=== PATIENT | male | born 1950 | race Caucasian/White ===

== ENCOUNTER → 2024-01-15 16:04 | Outpatient (BNVA) | payer MEDICARE, SELFPAY | PROVIDERS: PCP Nurse Practitioner; Visit Provider Nurse Practitioner | DX: E11.22 Type 2 diabetes mellitus with diabetic chronic kidney disease (principal); N18.30 Chronic kidney disease, stage 3 unspecified; E11.65 Type 2 diabetes mellitus with hyperglycemia; Z79.4 Long term (current) use of insulin; I48.91 Unspecified atrial fibrillation | CPT/HCPCS: 80069 ==

== ENCOUNTER → 2024-07-01 15:45 | Outpatient (BNVA) | payer MEDICARE, SELFPAY | PROVIDERS: PCP Nurse Practitioner; Visit Provider Nurse Practitioner | DX: E55.9 Vitamin D deficiency, unspecified (principal); E11.9 Type 2 diabetes mellitus without complications; Z79.4 Long term (current) use of insulin | CPT/HCPCS: 80053; 80061; 82306; 83036; 84443 ==

== ENCOUNTER 2024-10-13 19:10 | Emergency (ER) | payer MEDICARE, SELFPAY ==
[2024-10-13] VITALS (12 sets, daily range): BP systolic 116–128; BP diastolic 57–77; PULSE 75–80; RESP 18–28; TEMP 36.8; O2SAT 87–92
[2024-10-13 20:44] LABS: Basophils % 0.2 %; Eosinophils # 0.1 10^3/uL (0.0-0.8); Eosinophils % 1.4 %; Hematocrit 33.7 % (37-53); Lymphocytes # 0.3 10^3/uL (0.8-4.8); Lymphocytes % 3.2 %; Mean Corpuscular HGB Conc 31.2 g/dL (30-55); Mean Corpuscular Hemoglobin 25.9 pg (27-33); Mean Platelet Volume 10.3 fL (7.4-10.4); Monocytes # 0.4 10^3/uL (0.2-0.9); Monocytes % 4.2 %; Neutrophils # 7.56 10^3/uL (1.8-7.7); Neutrophils % 90.6 %; Nucleated Red Blood Cells % 0 %; Platelet Count 178 10^3/cmm (157-399); Red Blood Count 4.06 10^6/uL (3.85-5.65); White Blood Count 8.35 10^3/uL (3.29-11.43)
[2024-10-13 20:54] LABS: INR 1.46 (0.8-1.2)
[2024-10-13 20:58] LABS: Alanine Aminotransferase 31 U/L (0-41); Albumin Level 2.7 g/dL (3.5-5.2); Alkaline Phosphatase 148 U/L (40-130); Anion Gap 15.6 (5-19); Aspartate Amino Transferase 27 U/L (0-40); Blood Urea Nitrogen 53 mg/dL (8-23); Calcium 8.4 mg/dL (8.5-10.5); Carbon Dioxide 26 mmol/L (22-29); Chloride 91 mmol/L (98-107); Globulin 4.1 g/dL (1.3-4.6); Glucose 316 mg/dL (65-115); Osmolality Calculated 294 mOsm/kg (285-295); Potassium 3.6 mmol/L (3.5-5.1); Sodium 129 mmol/L (136-145); Total Bilirubin 0.5 mg/dL (0.15-1.2); Total Protein 6.8 g/dL (6.6-8.7)
--- NOTE | 2024-10-13 21:35 | XRR_ITS ---
PROCEDURE INFORMATION: Exam: XR Chest Exam date and time: 10/13/2024 9:36 PM Age: 74 years old Clinical indication: Other: Weakness; Prior surgery; Surgery date: 6+ months; Surgery type: Pacer TECHNIQUE: Imaging protocol: Radiologic exam of the chest. Views: 1 view. COMPARISON: CR XR abdomen 1V* [id number] 07/12/2023 11:24 AM FINDINGS: Limitations: Patient rotation. Tubes, catheters and devices: Left chest wall implantable pacer. Lungs: Patchy bibasilar opacities likely atelectasis. No definitive consolidation. Pleural spaces: No pleural effusion or pneumothorax. Heart/Mediastinum: Heart size is poorly evaluated. Bones/joints: No acute osseous abnormalities are seen. XR/XR chest 1V portable [id number] IMPRESSION: Patchy bibasilar opacities likely atelectasis.
[2024-10-13 21:52] LABS: C Reactive Protein 290.1 mg/L (0.0-4.9); Lactic Sepsis W/Reflex 1.5 mmol/L (0.5-2.2)
[2024-10-13 21:58] LABS: Bilirubin Urine Negative (Negative); Blood Urine 3+ (Negative); Glucose Urine UA 1+ (Normal); Ketones Urine Negative (Negative); Leukocyte Esterase Urine 2+ (Negative); Nitrate Urine Negative (Negative); Protein Urine 3+ (Negative); Specific Gravity, Urine 1.017 (1.005-1.030); Urine Appearance Turbid (CLEAR); Urobilinogen Urine 0.2 mg/dL (Negative)
--- NOTE | 2024-10-13 21:58 | W.ED.WEAKNES ---
HPI - Weakness General: Chief complaint: Weakness Stated complaint: possible uti Time Seen by Provider: 10/13/24 21:30 History of Present Illness: 74-year-old man with history of chronic kidney disease, Diabetes, atrial fibrillation on chronic Eliquis anticoagulation, coronary artery disease who presents emergency room with generalized weakness and leg pain. Swelling in his right knee. Pain in his calves bilaterally. He is on Eliquis. He was recently admitted to [facility] in [place] for urinary retention. He had a difficult to place Iqbal and ended up having to go to the OR for this. But been home for about 2 days now. My says he just continually got weaker. Also today she was concerned because he had less urine output and with the worsening swelling in his legs. No altered mental status. No fevers. He says he has had some cough. No abdominal pain. Review of Systems Narrative: Constitutional symptoms: Negative except as documented in HPI. Skin symptoms: Negative except as documented in HPI. Eye symptoms: Negative except as documented in HPI. ENMT symptoms: Negative except as documented in HPI. Respiratory symptoms: Negative except as documented in HPI. Cardiovascular symptoms: Negative except as documented in HPI. Gastrointestinal symptoms: Negative except as documented in HPI. Genitourinary symptoms: Negative except as documented in HPI. Musculoskeletal symptoms: Negative except as documented in HPI. Neurologic symptoms: Negative except as documented in HPI. Psychiatric symptoms: Negative except as documented in HPI. Endocrine symptoms: Negative except as documented in HPI. PFSH ED PFSH: Medical History BPH with obstruction/lower urinary tract symptoms Atrial fibrillation Constipation, slow transit CKD stage 3 due to type 2 diabetes mellitus History of [place] (myocardial infarction) Diabetes mellitus with hyperglycemia, with long-term current use of insulin Surgical History History of heart artery stent 2014 [facility] History of pacemaker August 2023 [facility] Family History Other Cancer Chronic kidney disease (CKD) Diabetes Diabetes mellitus, type 2 Heart disease Social History Smoking and tobacco/nicotine status: never used tobacco/nicotine Alcohol intake: never Substance/Drug Use: never Adopted: No Caregiver/support person: Yes () Lives independently: Yes Household members: spouse Housing: House Marital status: Number of children: 2 service: No Current occupational status: retired Do you think of yourself as: Straight/Heterosexual Current gender identity: Male Physical Exam Narrative: EXAM NARRATIVE: General: Alert, no acute distress. Skin: Warm, dry. 23+ pitting tibial edema. Bilateral lower medial posterior calves he has some cellulitic appearing areas. Head: Normocephalic, atraumatic. Neck: Supple, trachea midline. Eye: Extraocular movements are intact. Ears, nose, mouth and throat: mucosa moist. Cardiovascular: Regular, Normal peripheral perfusion. Respiratory: Lungs are clear to auscultation, respirations are non-labored, breath sounds are equal, Symmetrical chest wall expansion. Gastrointestinal: Soft, Nontender, Non distended Musculoskeletal: Normal ROM, no deformity. Patient has a large prepatellar effusion with no redness. Do not suspect septic joint. Neurological: Alert and oriented, No focal neurological deficit observed. Psychiatric: Cooperative, appropriate mood & affect. Course Vital Signs: Vital signs: Vital Signs Temperature 98.2 F 10/13/24 19:15 Pulse Rate 75 10/14/24 01:30 Respiratory Rate 16 10/14/24 01:30 Blood Pressure 117/59 10/14/24 01:30 Pulse Oximetry 92 10/14/24 01:30 Oxygen Delivery Me thod Room Air 10/13/24 19:15 MDM - Weakness Medical Decision Making Medical decision making: Differential diagnosis for patient presenting with generalized weakness including but not limited to and based on the above HPI, review of systems and physical exam: Sepsis. Dehydration. Renal failure. Electrolyte abnormalities. Anemia. Congestive heart failure. Hypotension. Coronary syndrome. Hepatitis. Cirrhosis. Infections such as pneumonia, urinary tract infection, Tick bourne illness, Cellulitis, Viral infections including influenza and Covid-19. Workup: labwork and lab/exam driven imaging ordered to evaluate, rule in and rule out above pathologies. Lab Review: Laboratory results were reviewed and interpreted by myself the emergency room physician. No leukocytosis. No anemia. Renal function appears near baseline with a BUN/creatinine of 53 and 3.1. Sodium is a little low at 129 but his sugar is high at 316 Chest x-ray: Likely atelectasis. This was reviewed and interpreted by myself the emergency room physician. I also reviewed the radiology report. CT of the chest without contrast: Small bilateral pleural effusions with atelectasis. Sclerotic foci throughout the ribs and spine concerning for osseous metastatic disease. I discussed this with the and the patient and they will follow-up with her primary and with oncology. This was reviewed and interpreted by myself the emergency room physician. I also reviewed the radiology report. I reviewed the patient's medical record. Reexamination: Patient when awake does not require oxygen. He is gotten altered mental status. No focal motor deficits. Just generalized weakness and edema. He is on antibiotics after Iqbal placement at home. says patient has he has been at [facility] with his mind. She does not want to pursue that path. They should have a hospital bed at home soon. She is going to discuss home health options with her primary care provider. Consultation: I spoke with Dr. Carmichael several times about the patient. He does not feel the patient warrants admission. He feels like if they need oxygen that can be done in the emergency room. Discussed with the patient and the family and they say they do not think he needs oxygen at home and they are just going to take him home. Consultation: I spoke with the hospitalist service at [facility]. Renal function actually is a little bit better which might indicate that he needs some diuresis. I giving some IV Lasix here. If he worsens they will return to the hospital and we will transfer. Or admit here. So discussed the findings on the CT scan that suggest small sclerotic foci throughout the ribs and spine that are concerning for metastatic disease. was unaware of this. Assessment and plan: Weakness Edema Chronic kidney disease Hyperglycemia Possible bony metastatic disease ?IV insulin and IV Lasix in the emergency room. - Discharged home - Discussed plan with patient. Answered any questions. - Evaluation and treatment of this problem were appropriate in the emergency setting. Lab Data 10/13/24 20:38 10/13/24 20:38 Radiology Impressions Chest X-Ray 10/13/24 21:35 IMPRESSION: Patchy bibasilar opacities likely atelectasis. Chest CT 10/14/24 00:24 IMPRESSION: 1. Small bilateral pleural effusions with adjacent atelectasis 2. Innumerable small sclerotic foci throughout the ribs and spine concerning for osseous metastatic disease. 3. Other nonemergent findings above. Laboratory Results WBC 8.35 10^3/uL (3.29-11.43) 10/13/24: RBC 4.06 10^6/uL (3.85-5.65) 10/13/24 20:38 Hgb 10.50 g/dL (11.27-16.99) L 10/13/24 20: Hct 33.7 % (37-53) L 10/13/24: MCV 83.0 fl (82-101) 10/13/24: MCH 25.9 pg (27-33) L 10/13/24: MCHC 31.2 g/dL (30-55) 10/13/24: RDW 17.0 % (12.1-15.1) H 10/13/24: Plt Count 178 10^3/cmm (157-399) 10/13/24: MPV 10.3 fL (7.4-10.4) 10/13/24: Neut % (Auto) 90.6 % 10/13/24: Lymph % (Auto) 3.2 % 10/13/24: [place] % (Auto) 4.2 % 10/13/24: Eos % (Auto) 1.4 % 10/13/24: Baso % (Auto) 0.2 % 10/13/24: Neut # (Auto) 7.56 10^3/uL (1.8-7.7) 10/13/24: Lymph # (Auto) 0.3 10^3/uL (0.8-4.8) L 10/13/24:38 [place] # (Auto) 0.4 10^3/uL (0.2-0.9) 10/13/24: Eos # (Auto) 0.1 10^3/uL (0.0-0.8) 10/13/24: Baso # (Auto) 0.0 10^3/uL (0.0-0.1) 10/13/24: Nucleated RBC % (auto) 0 % 02/11/25 20:38 Nucleated RBCs # 0.0 /100WBC 10/13/24 20:38 PT 18.70 SECONDS (12.1-14.9) H 10/13/24 20:38 INR 1.46 (0.8-1.2) H 10/13/24 20:38 Specimen Type Arterial 10/14/24 00:02 Sample Site Radial, right 10/14/24 00:02 ABG pH 7.51 (7.35-7.45) H 10/14/24 00:02 ABG pCO2 37.5 mmHg (35-45) 10/14/24 00:02 ABG pO2 56.3 mmHg (80.0-100.0) L 10/14/24 00:02 ABG HCO3 30.1 mmol/L (22-26) H 10/14/24 00:02 ABG O2 Saturation 89.4 10/14/24 00:02 ABG Base Excess 6.7 mmol/L (-2.0-2.0) H 10/14/24 00:02 [place] Test Pos 10/14/24 00:02 A-a O2 Gradient Not Reportable 10/14/24 00:02 Hematocrit 29.5 % (42-52) L 10/14/24 00:02 Hgb O2 Saturation 88.6 % (95-100) L 10/14/24 00:02 Carboxyhemoglobin 0.5 %THgb (0.4-20.1) 10/14/24 00:02 Methemoglobin 0.4 % (0.4-1.5) 10/14/24 00:02 Total Hemoglobin 9.6 g/dL (14-18) L 10/14/24 00:02 Sodium 133.0 mmol/L (131-143) 10/14/24 00:02 Potassium 3.1 mmol/L (3.5-5.0) L 10/14/24 00:02 Glucose 305.0 mg/dL (70-115) H 10/14/24 00:02 Ionized Calcium 1.1 mmol/L (1.1-1.4) 10/14/24 00:02 O2 Delivery Device None 10/14/24 00:02 FiO2 0.0 % 10/14/24 00:02 Casserole Preparer ID Roberth 10/14/24 00:02 Sodium 129 mmol/L (136-145) L 10/13/24 20:38 Potassium 3.6 mmol/L (3.5-5.1) 10/13/24 20:38 Chloride 91 mmol/L (98-107) L 10/13/24 20:38 Carbon Dioxide 26 mmol/L (22-29) 10/13/24 20:38 Anion Gap 15.6 (5-19) 10/13/24 20:38 BUN 53 mg/dL (8-23) H 10/13/24 20:38 Creatinine 3.1 mg/dL (0.7-1.2) H 10/13/24 20:38 GFR Calculation Not Reportable 10/13/24 20:38 Glucose 316 mg/dL (65-115) H 10/13/24 20:38 POC Glucose 296 mg/dL (70-110) H 10/14/24 02:25 Calculated Osmolality 294 mOsm/kg (285-295) 10/13/24 20:38 Lactic Acid 1.5 mmol/L (0.5-2.2) 10/13/24 20:38 Calcium 8.4 mg/dL (8.5-10.5) L 10/13/24 20:38 Total Bilirubin 0.5 mg/dL (0.15-1.2) 10/13/24 20:38 AST 27 U/L (0-40) 10/13/24 20:38 ALT 31 U/L (0-41) 10/13/24 20:38 Alkaline Phosphatase 148 U/L (40-130) H 10/13/24 20:38 C-Reactive Protein 290.1 mg/L (0.0-4.9) H 10/13/24 20:38 NT-Pro-B Natriuret Pep 4014 pg/mL (0-125) H 10/13/24 20:38 Total Protein 6.8 g/dL (6.6-8.7) 10/13/24 20:38 Albumin 2.7 g/dL (3.5-5.2) L 10/13/24 20:38 Globulin 4.1 g/dL (1.3-4.6) 10/13/24 20:38 Urine Color Dark yellow (Yellow) A 10/13/24 21:49 Urine Appearance Turbid (CLEAR) A 10/13/24 21:49 Urine pH 5.0 (5-7) 10/13/24 21:49 Ur Specific [place] 1.017 (1.005-1.030) 10/13/24 21:49 Urine Protein 3+ (Negative) A 10/13/24 21:49 Urine Glucose (UA) 1+ (Normal) H 10/13/24 21:49 Urine Ketones Negative (Negative) 10/13/24 21:49 Urine Blood 3+ (Negative) A 10/13/24 21:49 Urine Nitrate Negative (Negative) 10/13/24 21:49 Urine Bilirubin Negative (Negative) 10/13/24 21:49 Urine Urobilinogen 0.2 mg/dL (Negative) 10/13/24 21:49 Ur Leukocyte Esterase 2+ (Negative) A 10/13/24 21:49 Urine RBC Too numerous to cnt /hpf (0-2) H 10/13/24 21:49 Urine WBC 15-25 /hpf (0-5) H 10/13/24 21:49 Ur Squamous Epith Cells 0-4 /hpf (0-5) H 10/13/24 21:49 Amorphous Sediment Not Reportable 10/13/24 21:49 Urine Bacteria Trace /hpf (NONE) 10/13/24 21:49 Hyaline Casts 5-10 /lpf H 10/13/24 21:49 Fine Granular Casts 0-4 /lpf H 10/13/24 21:49 Coarse Granular Casts Rare /lpf 10/13/24 21:49 Adenovirus (PCR) Not detected (NOT DETECT) 10/14/24 00:32 C. pneumoniae DNA (PCR) Not detected (NOT DETECT) 10/14/24 00:32 Coronavirus (PCR) Negative (Negative) 10/13/24 21:50 Coronavirus 229E (PCR) Not detected (NOT DETECT) 10/14/24 00:32 Human Metapneumovir PCR Not detected (NOT DETECT) 10/14/24 00:32 Influenza A (H1) PCR Not detected (NOT DETECT) 10/14/24 00:32 Influenza A (PCR) Negative (Negative) 10/13/24 21:50 Influ A (H1/09) PCR Not detected (NOT DETECT) 10/14/24 00:32 Influenza A (H3) PCR Not detected (NOT DETECT) 10/14/24 00:32 Influenza Type A (PCR) Not detected (NOT DETECT) 10/14/24 00:32 Influenza Type B (PCR) Not detected (NOT DETECT) 10/14/24 00:32 M. pneumoniae (PCR) Not detected (NOT DETECT) 10/14/24 00:32 Parainfluenza 1 (PCR) Not detected (NOT DETECT) 10/14/24 00:32 Parainfluenza 2 (PCR) Not detected (NOT DETECT) 10/14/24 00:32 Parainfluenza 3 (PCR) Not detected (NOT DETECT) 10/14/24 00:32 Parainfluenza 4 (PCR) Not detected (NOT DETECT) 10/14/24 00:32 RSV (PCR) Negative (Negative) 10/13/24 21:50 RSV Type A (PCR) Not detected (NOT DETECT) 10/14/24 00:32 RSV Type B (PCR) Not detected (NOT DETECT) 10/14/24 00:32 Entero/Rhino (PCR) Not detected (NOT DETECT) 10/14/24 00:32 SARS-CoV-2 (PCR) Not detected (NOT DETECT) 10/14/24 00:32 All radiology interpretation(s) finalized by discharge Discharge Plan Discharge Patient Disposition: Home Clinical Impression: Weakness, Urinary retention, Edema of left lower leg, Chronic kidney disease (CKD), Hyperglycemia Condition: Stable Prescriptions: No Action amiodarone 200 mg tablet 200 mg PO DAILY acetaminophen 325 mg capsule 325 mg PO QID PRN isosorbide mononitrate 60 mg tablet extended release 24 hr 60 mg PO DAILY magnesium oxide 400 mg (241.3 mg magnesium) tablet 400 mg PO DAILY nitroglycerin 0.4 mg tablet, sublingual 0.4 mg sublingual Q5M PRN Rx Instructions: do not exceed 3 doses per episode polyethylene glycol 3350 17 gram/dose powder 4 g PO DAILY PRN dutasteride 0.5 mg capsule 0.5 mg PO DAILY apixaban 5 mg tablet 5 mg PO BID Qty: 60 5RF atorvastatin 80 mg tablet 80 mg PO DAILY Qty: 90 0RF ergocalciferol (vitamin D2) 1,250 mcg (50,000 unit) capsule 1,250 mcg PO .weekly Qty: 4 2RF exenatide [Byetta] 10 mcg/dose(250 mcg/mL) 2.4 mL pen injector 10 mcg SUBCUT BID Qty: 2.4 2RF hydralazine 50 mg tablet 50 mg PO BID 90 Days Qty: 180 0RF insulin glargine [Lantus Solostar U-100 Insulin] 100 unit/mL (3 mL) insulin pen See Rx Instructions SUBCUT DAILY Qty: 30 5RF Rx Instructions: up 50U subcutaneously daily; insulin lispro [Humalog KwikPen Insulin] 100 unit/mL insulin pen See Rx Instructions SUBCUT TID Qty: 15 5RF Rx Instructions: 18 units +2U every 50 over 150. Max 50 subcutaneously three times daily; metolazone 2.5 mg tablet 2.5 mg PO DAILY PRN (Reason: swelling) Qty: 90 0RF metoprolol succinate 25 mg tablet extended release 24 hr 25 mg PO DAILY Qty: 90 0RF potassium chloride 10 mEq tablet extended release 10 meq PO DAILY Qty: 90 0RF tamsulosin 0.4 mg capsule 0.4 mg PO DAILY Qty: 90 1RF torsemide 20 mg tablet 40 mg PO DAILY Qty: 180 0RF cefdinir 300 mg capsule 300 mg PO QDAY (DME) hospital bed E0250 See Rx Instructions .ROUTE .MEDSUPPLY Qty: 1 0RF Rx Instructions: As directed ([facility] [place]) OneTouch Verio test strips Strip See Rx Instructions .Route Qty: 100 11RF Rx Instructions: 3 times day ([facility] [place]) A4349 External male catheter See Rx Instructions .Route .MEDSUPPLY Qty: 5 11RF Rx Instructions: As directed Discharge Orders: Discharge ED (Routine); Ordered 10/14/24 Ordered By: Cheli Mcduffie Referrals: Alex Nugent MD [Hospitalist] - 4-7 days (Please call for follow-up with oncology concerning lesions to the ribs and spine.) Behzad Parish FNP-C [Primary Care Provider] - 4-7 days (Please call for prompt follow-up with her primary provider.) Discharge Diet: Usual diet Discharge Activity: Increase activity as tolerated Patient Instructions: Weakness (ED), Opioid Safety, Pain Management Activity Restrictions/Additional Instructions: You need prompt follow-up with your primary provider and likely with oncology concerning small sclerotic lesions throughout the ribs and spine. These might indicate a metastatic cancer. Thank you for choosing [facility] for your healthcare needs today. Please realize this is an emergency room and that we are providing you with a medical screening exam and this may not be complete and all inclusive of all the testing and or work up that you may need to determine your ailment or severity of your illness. You have been screened and evaluated and felt safe for discharge. Health conditions do change or evolve sometimes and as such it is important that you follow up with your Primary Doctor to be re checked, 3-5 days is a general good time frame for follow up. You are always welcome to return to the ED for re assessment if your symptoms are worsening or you have new concerns Print Language: Polish Coding Level of Care Code ED Corrugator Operator Helper for Chg Fwd Related Data Home Medications ?Medication ?Instructions ?Recorded ?Confirmed acetaminophen 325 mg capsule 325 mg PO QID PRN 09/05/23 10/02/24 amiodarone 200 mg tablet 200 mg PO DAILY 09/05/23 10/02/24 isosorbide mononitrate 60 mg 60 mg PO DAILY 09/05/23 10/02/24 tablet,extended release 24 hr magnesium oxide 400 mg (241.3 mg 400 mg PO DAILY 09/05/23 10/02/24 magnesium) tablet nitroglycerin 0.4 mg sublingual 0.4 mg sublingual Q5M PRN 09/05/23 10/02/24 tablet polyethylene glycol 3350 17 4 g PO DAILY PRN 09/05/23 10/02/24 gram/dose oral powder dutasteride 0.5 mg capsule 0.5 mg PO DAILY 04/28/24 10/13/24 cefdinir 300 mg capsule 300 mg PO QDAY 10/13/24 10/13/24 Previous Rx's ?Medication ?Instructions ?Recorded blood sugar diagnostic (OneTouch #100 ea 09/12/23 Verio test strips) A4349 External male catheter #5 ea 09/15/24 apixaban 5 mg tablet 5 mg PO BID #60 tabs 10/02/24 atorvastatin 80 mg tablet 80 mg PO DAILY #90 tabs 10/02/24 ergocalciferol (vitamin D2) 1,250 1,250 mcg PO .weekly #4 caps 10/02/24 mcg (50,000 unit) capsule exenatide 10 mcg/dose(250 10 mcg (0.04 mL) SUBCUT BID #2.4 mL 10/02/24 mcg/mL)2.4 mL subcutaneous pen injector (Byetta) hydralazine 50 mg tablet 50 mg PO BID 90 days #180 tabs 10/02/24 insulin glargine 100 unit/mL (3 See Rx Instructions SUBCUT DAILY 10/02/24 mL) subcutaneous pen (Lantus #30 mL Solostar U-100 Insulin) insulin lispro 100 unit/mL See Rx Instructions SUBCUT TID #15 10/02/24 subcutaneous pen (Humalog KwikPen mL (U-100) Insulin) metolazone 2.5 mg tablet 2.5 mg PO DAILY PRN swelling #90 10/02/24 tabs metoprolol succinate 25 mg 25 mg PO DAILY #90 tabs 10/02/24 tablet,extended release 24 hr potassium chloride 10 mEq 10 meq PO DAILY #90 tabs 10/02/24 tablet,extended release tamsulosin 0.4 mg capsule 0.4 mg PO DAILY #90 caps 10/02/24 torsemide 20 mg tablet 40 mg (2 x 20 mg) PO DAILY #180 10/02/24 tabs hospital bed E0250 #1 ea 10/13/24 Allergies Allergy/AdvReac Type Severity Reaction Status Date / Time Penicillins Allergy Unknown rash Verified 10/02/24 19:48 spironolactone Allergy Unknown Unknown Verified 10/02/24 19:48
[2024-10-13 22:03] LABS: Add Urine Microscopic? YES
[2024-10-13 22:21] LABS: Urine Color Dark Yellow (Yellow)
[2024-10-13 22:23] LABS: RBC Urine TOO NUMEROUS TO CNT /hpf (0-2); UA Manual Slide Review YES; UA Slide Review UA Slide Review Perf
[2024-10-13 22:24] LABS: Bacteria Urine TRACE /hpf; Squamous Epithelial Cell Urine 0-4 /hpf (0-5); WBC Urine 15-25 /hpf (0-5)
[2024-10-13 22:25] LABS: Add Urine Culture? Yes; Coarse Granular Casts Urine RARE /lpf; Fine Granular Casts Urine 0-4 /lpf
[2024-10-13 22:41] LABS: Covid PCR NEGATIVE (Negative); Influenza A NEGATIVE (Negative); Influenza B NEGATIVE (Negative); Respiratory Syncytial Virus Ce NEGATIVE (Negative)
[2024-10-13 23:19] LABS: NT Pro B Type Natriuretic Pept 4014 pg/mL (0-125)
[2024-10-14] VITALS (9 sets, daily range): BP systolic 116–125; BP diastolic 55–59; PULSE 73–79; RESP 16–29; O2SAT 88–95
[2024-10-14 00:13] LABS: ABG PCO2 37.5 mmHg (35-45); ABG PH Result 7.51 (7.35-7.45); Arterial Blood Gas Hematocrit 29.5 % (42-52); Base Excess ABG 6.7 mmol/L (-2.0-2.0); Blood Gas Allen Test Pos; Blood Gas Operator Identificat SAM; Blood Gas Sample Site Radial, right; Blood Gas Sample Type Arterial; Carboxyhemoglobin 0.5 %THgb (0.4-20.1); HCO3 ABG 30.1 mmol/L (22-26); HGB O2 Sat 88.6 % (95-100); Ionized Calcium Level - ABG 1.1 mmol/L (1.1-1.4); Methemoglobin 0.4 % (0.4-1.5); Oxygen Saturation ABG 89.4; PO2 ABG 56.3 mmHg (80.0-100.0); Potassium Level - ABG 3.1 mmol/L (3.5-5.0); Total Hemoglobin 9.6 g/dL (14-18)
--- NOTE | 2024-10-14 00:24 | CTR_ITS ---
PROCEDURE INFORMATION: Exam: CT Chest Without Contrast; Diagnostic Exam date and time: 10/14/2024 12:53 AM Age: 74 years old Clinical indication: Fever and other: Leg swelling and abn cxr; Prior surgery; Surgery date: 6+ months; Surgery type: Pacer, stents; Additional info: Abnormal chest xray TECHNIQUE: Imaging protocol: Diagnostic computed tomography of the chest without contrast. Radiation optimization: All CT scans at this facility use at least one of these dose optimization techniques: automated exposure control; mA and/or kV adjustment per patient size (includes targeted exams where dose is matched to clinical indication); or iterative reconstruction. COMPARISON: CR (CHEST, ) 10/13/2024 9:36 PM RADIATION DOSE METRICS: Total DLP (mGy-cm): 664.21 FINDINGS: Tubes, catheters and devices: Left chest wall implantable pacer. Lungs: Mild bibasilar atelectasis. Scattered areas of peripheral atelectasis or scarring. Chronic appearing mid sternal fracture. Pleural spaces: Trace bilateral pleural effusions. No pneumothorax. Heart: Moderate cardiomegaly. Trace pericardial fluid may be physiologic. Coronary arteries: Moderate coronary artery calcification. Lymph nodes: No enlarged lymph nodes are identified. Vasculature: Atherosclerotic calcifications of the aorta are present. No aneurysm is identified. Bones/joints: Innumerable small sclerotic foci throughout the ribs and spine concerning for osseous metastatic disease. Soft tissues: The soft tissues are within normal limits. CT/CT chest wo con [id number] IMPRESSION: 1. Small bilateral pleural effusions with adjacent atelectasis 2. Innumerable small sclerotic foci throughout the ribs and spine concerning for osseous metastatic disease. 3. Other nonemergent findings above.
[2024-10-14 02:24] LABS: Adenovirus Not Detected (NOT DETECT); Chlamydia Pneumoniae Not Detected (NOT DETECT); Coronavirus 229E,HKU1,NL63,OC4 Not Detected (NOT DETECT); Human Metapneumovirus Not Detected (NOT DETECT); Human Rhinovirus/Enterovirus Not Detected (NOT DETECT); Influenza A Not Detected (NOT DETECT); Influenza A H1 Not Detected (NOT DETECT); Influenza A H1-2009 Not Detected (NOT DETECT); Influenza A H3 Not Detected (NOT DETECT); Influenza B Not Detected (NOT DETECT); Mycoplasma Pneumoniae Not Detected (NOT DETECT); Parainfluenza Virus Type 1 Not Detected (NOT DETECT); Parainfluenza Virus Type 2 Not Detected (NOT DETECT); Parainfluenza Virus Type 3 Not Detected (NOT DETECT); Parainfluenza Virus Type 4 Not Detected (NOT DETECT); Respiratory Syncytial Virus A Not Detected (NOT DETECT); Respiratory Syncytial Virus B Not Detected (NOT DETECT); SARS-COV-2 Not Detected (NOT DETECT)
[2024-10-14] MEDS: FUROsemide 10 mg/mL SDV 10mL 40 MG IVP (02:29)
[2024-10-14] MEDS: insulin regular-human 100 units/1 mL 10 UNIT IVP (02:31)
[2024-10-14 02:36] LABS: Glucose Point of Care 296 mg/dL (70-110)
== END 2024-10-14 02:50 | disposition home or self-care (01) ==
PROVIDERS: Emergency Medicine; Emergency Provider Emergency Medicine; PCP Nurse Practitioner
DX: R53.1 Weakness (principal); R33.9 Retention of urine, unspecified; R60.0 Localized edema; E11.22 Type 2 diabetes mellitus with diabetic chronic kidney disease; E11.65 Type 2 diabetes mellitus with hyperglycemia; N18.30 Chronic kidney disease, stage 3 unspecified; Z11.52 Encounter for screening for COVID-19; Z79.4 Long term (current) use of insulin
CPT/HCPCS: 36415; 36416; 36600; 71045; 71250; 80051; 80053; 81001; 81003; 82330; 82805; 82962; 83605; 83880; 85025; 85610; 86140; 87040; 87086; 87486; 87581; 87633; 87637; 96374; 96375; 99285; J1815; J1940

== ENCOUNTER → 2024-11-04 13:43 | Outpatient (BNVA) | payer MEDICARE, SELFPAY | PROVIDERS: PCP Nurse Practitioner; Visit Provider Nurse Practitioner | DX: R30.0 Dysuria (principal); E11.9 Type 2 diabetes mellitus without complications | CPT/HCPCS: 81000 ==

== ENCOUNTER → 2025-02-15 14:57 | Outpatient (BNVA) | payer MEDICARE, SELFPAY | PROVIDERS: PCP Nurse Practitioner; Visit Provider Nurse Practitioner | DX: N40.1 Benign prostatic hyperplasia with lower urinary tract symptoms (principal); N13.8 Other obstructive and reflux uropathy; E11.65 Type 2 diabetes mellitus with hyperglycemia; Z79.4 Long term (current) use of insulin; E55.9 Vitamin D deficiency, unspecified | CPT/HCPCS: 80053; 80061; 81000; 82306; 83036; 87077; 87086; 87184 ==

== ENCOUNTER → 2025-07-19 10:45 | Outpatient (BNVA) | payer MEDICARE, SELFPAY | PROVIDERS: PCP Nurse Practitioner; Visit Provider Nurse Practitioner | DX: E55.9 Vitamin D deficiency, unspecified (principal); E11.22 Type 2 diabetes mellitus with diabetic chronic kidney disease; E11.65 Type 2 diabetes mellitus with hyperglycemia; I12.9 Hypertensive chronic kidney disease with stage 1 through stage 4 chronic kidney disease, or unspecified chronic kidney disease; N18.30 Chronic kidney disease, stage 3 unspecified; Z79.4 Long term (current) use of insulin | CPT/HCPCS: 80053; 80061; 82306; 82607; 83036; 84443; 84550 ==

== ENCOUNTER → 2025-08-02 11:11 | Outpatient (BNVA) | payer MEDICARE, SELFPAY | PROVIDERS: PCP Nurse Practitioner; Visit Provider Nurse Practitioner | DX: E11.65 Type 2 diabetes mellitus with hyperglycemia (principal); Z79.4 Long term (current) use of insulin; E55.9 Vitamin D deficiency, unspecified; E11.22 Type 2 diabetes mellitus with diabetic chronic kidney disease; N18.30 Chronic kidney disease, stage 3 unspecified | CPT/HCPCS: 82043 ==